=== PATIENT | female | born 1940 | race Caucasian/White ===

== ENCOUNTER → 2018-01-13 | Outpatient (CLI) | payer OTHER ==
[~2018-01-13] MED LIST: ASPI81CH7 CHEW; CALC600T64; FLUT1INH INH; GEMF600T PO; IPRAAER INH; META48.53 PO; ZOLE5P IV
--- NOTE | 2018-01-14 10:43 | RSPPFT ---
DATE OF PROCEDURE: 01/13/18 COMMENTS: Spirometry shows FVC of 1.7 at 66% of predicted, FEV1 of 0.9 at 50%, FEV1/FVC ratio is decreased. Flow is decreased at FEF 25, FEF 50, FEF 75 and FEF 25-75 . There is no response after bronchodilator treatment. Lung volumes show residual volume is decreased. TLC is decreased. Diffusion capacity is decreased. Flow volume loop indicates an obstructive pattern. Room air arterial blood gases show pH of 7.3, PCO2 of 44, PO2 of 58, BiCarb of 24 and O2 Saturation at 83%,. IMPRESSION: 1. Moderately severe obstructive lung disease. 2. Additional restrictive lung disease. 3. No response after bronchodilator treatment. 4. Decreased lung volumes. 5. Decreased diffusion capacity. 6. Room air arterial blood gases show hypoxia.
== END ==
LOC: HRSP 08:52
PROVIDERS: ATTEND Specialist
DX: J44.9 Chronic obstructive pulmonary disease, unspecified (principal)
CPT/HCPCS: 36600; 82805; 94060; 94726; 94729